=== PATIENT | male | born 1955 | race Caucasian/White ===

== ENCOUNTER 2022-07-25 14:30 | Outpatient (REF) | payer MEDICARE, SELFPAY ==
[2022-07-25 16:03] LABS: Anion Gap 12 (12-20); Blood Urea Nitrogen 17 mg/dL (9-16); Calcium 9.1 mg/dL (8.4-10.2); Carbon Dioxide 30 mmol/L (22-29); Chloride 104 mmol/L (96-108); Estimated Glomerular Filt Rate > 60; Glucose Random 106 mg/dL (60-115); Potassium 4.6 mmol/L (3.3-5.1); Sodium 141 mmol/L (135-145)
[2022-07-25 16:34] LABS: Folate 11.8 ng/mL (> or = 4.0); T4 Thyroxine 6.4 ug/dL (4.5-12.0); Thyroid Stimulating Hormone 0.55 uIU/mL (0.32-4.0); Vitamin B12 505 pg/mL (200-900)
== END 2022-07-25 14:31 | disposition home or self-care (01) ==
LOC: HO.LAB 14:30
PROVIDERS: PCP Internal Medicine; Visit Provider Psychiatry & Neurology Neurology
DX: G31.84 Mild cognitive impairment of uncertain or unknown etiology (principal)
CPT/HCPCS: 36415; 80048; 82607; 82746; 84436; 84443

== ENCOUNTER 2022-08-24 09:26 | Outpatient (REF) | payer MEDICARE, SELFPAY ==
--- NOTE | ~2022-08-24 | CT_ITS ---
EXAMINATION: CT HEAD WITHOUT CONTRAST CLINICAL INFORMATION: 67-year-old with mild cognitive impairment. COMPARISON: None available. TECHNIQUE: Contiguous axial imaging was performed from the skull base to vertex without intravenous administration of contrast. This CT examination was performed using dose optimization techniques as appropriate, variously including the following: *Automated exposure control *Adjustment of mA and/or kV according to patient size (this includes techniques or standardized protocols for targeted exams where dose is matched to indication/reason for exam; i.e. extremities or head) *Use of iterative reconstruction technique DLP: 773.20 mGy-cm FINDINGS: Brain Volume: Within normal limits within the limitations of qualitative assessment. Structural: No malformations. Brain and Meninges: Overall, the brain appears structurally intact. Long-white matter differentiation is well maintained. A few scattered tiny hypodensities are seen in the subcortical white matter of both cerebral hemispheres which are nonspecific and could reflect tiny zones of the chronic ischemic microangiopathy or possibly perivascular spaces. No acute territorial infarct, hemorrhage, extra-axial fluid collection, space-occupying process or mass effect. Ventricles and Subarachnoid Spaces: The ventricular system and subarachnoid spaces are within normal range; there is no hydrocephalus. Orbital Structures: Grossly unremarkable within the limitations of the study. Osseous Structures, Sinuses/Mastoids, Extracranial Soft Tissues: Subcentimeter retention cyst anterior wall right maxillary sinus. Otherwise grossly unremarkable. CT/CT head/brain wo IV con IMPRESSION: 1. No acute intracranial process. No acute territorial infarct, hemorrhage, extra-axial fluid collection, space-occupying process, mass effect or hydrocephalus. 2. A few scattered tiny hypodensities in the subcortical white matter of both cerebral hemispheres are nonspecific and could reflect tiny zones of chronic ischemic microangiopathy or possibly perivascular spaces. 3. No significant disproportionate global or regional brain parenchymal volume loss within the limitations of a qualitative assessment.
== END 2022-08-24 09:27 | disposition home or self-care (01) ==
LOC: HO.CT 09:26
PROVIDERS: PCP Internal Medicine; Visit Provider Psychiatry & Neurology Neurology
DX: G31.84 Mild cognitive impairment of uncertain or unknown etiology (principal)
CPT/HCPCS: 70450

== ENCOUNTER 2024-01-07 07:01 | Outpatient (REF) | payer MEDICARE, SELFPAY ==
--- NOTE | ~2024-01-07 | MR_ITS ---
EXAMINATION: MR BRAIN WITHOUT CONTRAST CLINICAL INFORMATION: Short-term memory problems. Reported prior stroke. COMPARISON: Head CT from 08/24/2022. TECHNIQUE: Multiplanar, multisequence imaging of the brain was performed without contrast. FINDINGS: No diffusion abnormalities are identified to suggest an acute infarct. Mild generalized brain parenchymal volume loss evident. The ventricles are otherwise normal in size. No mass effect or midline shift is seen. Minimal scattered white matter signal changes may be due to chronic microangiopathy. No extra-axial fluid collections are seen. The brainstem and cerebellum are normal. The gradient refocused acquisition is normal. The craniovertebral junction, marrow signal, and midline structures are normal. The major intracranial flow voids at the level of the [place] of [place] are preserved. The dural venous sinus flow voids are maintained. The mastoid air cells are well aerated. Small retention cysts in the maxillary sinuses. Interbody hardware partially visualized at the C3-C4 level. MR/MR head/brain wo con IMPRESSION: No acute intracranial process. Mild generalized brain parenchymal volume loss and minimal chronic white matter microangiopathy. Electronically signed by: Vega Ferrer MD 01/25/2024 03:28 PM EDT
== END 2024-01-07 07:02 | disposition home or self-care (01) ==
LOC: HO.MRI 07:01
PROVIDERS: PCP Internal Medicine; Visit Provider Psychiatry & Neurology Neurology
DX: G31.84 Mild cognitive impairment of uncertain or unknown etiology (principal)
CPT/HCPCS: 70551

== ENCOUNTER 2025-04-21 08:27 | Outpatient (AMB) | payer MEDICARE, SELFPAY ==
--- OUTSIDE RECORDS SUMMARY | 2025-04-21 08:30 | XMS_ITS | Clinical Summary ---
Author Organization [facility] Address [address] [place] [address] Care Team Providers Care Operations Specialists Name Role Phone Vlad Fletcher MD Primary Care Provider [phone] Social History Tobacco Use Types Packs/Day Years Used Date Smoking Tobacco: Never Assessed Sex and Gender Information Value Date Recorded Sex Assigned at Not on file Gender Identity Not on file Sexual Orientation Not on file Job Start Date Occupation Industry Not on file Not on file Not on file Plan of Treatment Health Maintenance Due Date Last Done Comments Hepatitis C Screening 1955 Depression Screening 1969 Preventative Health Evaluation 1975 DTap / Tdap / Td (1 - Tdap) 01/27/1976 Colon Cancer Screening (Colonoscopy) 2002 Shingrix-Zoster Vaccine (1 of 2) 2007 Fall Risk Assessment 2022 Pneumococcal Vaccine (2 of 2 - PPSV23 or PCV20) 2022 01/12/2015 COVID-19 Vaccine (3 - season) 2025 09/12/2020, 08/21/2020 Influenza Vaccine (#1) 2025 , 07/03/2019, 01/25/2017, Additional history exists RSV Adult > 60+ Yrs or (1 - 1-dose 75+ series) 01/27/2032 Hepatitis B Vaccines Aged Out No long er eligible based on patient's age to complete this topic RSV Ped < 20 months Aged Out No longe r eligible based on patient's age to complete this topic Care Teams Operations Specialists Relationship Specialty Start Date End Date Vlad Fletcher MD [address] [place] [id number] PCP - General Internal Medicine 04/28/19
--- OUTSIDE RECORDS SUMMARY | 2025-04-21 08:30 | XMS_ITS | Clinical Summary ---
Author Organization 175 [facility] Address [address] [place] [address] Phone Care Team Providers Care Phototypesetting Equipment Monitor Name Role Phone Paula Kumar MD Primary Care Provider [phone] Allergies Active Allergy Reactions Criticality Noted Date Comments Cat Dander 03/16/2016 CATS Dog Dander 03/16/2016 DOGS Horse Dander 03/16/2016 HORSES Other 03/16/2016 Seasonal Allergies Medications nitroglycerin (NITROSTAT) 0.[address] 1 Tablet under the tongue every 5 minutes as needed for Chest pain. 09/07/19 23 Active lamoTRIgine (LaMICtal) 200 mg tablet Take 1 Tablet by mouth 2 Times Daily. 03/08/20 22 Active aspirin 81 mg EC tablet TAKE 1 TABLET BY MOUTH EVERY DAY 90 tablet 1 07/15/19 25 Active albuterol HFA (PROAIR HFA ; PROVENTIL HFA ; VENTOLIN HFA) 90 mcg/actuation inhaler INHALE 1-2 PUFFS INTO THE LUNGS EVERY 4-6 HOURS NEEDED FOR COUGH OR WHEEZING 18 g 1 08/02/19 25 Active omeprazole (PriLOSEC) [address] capsule Take 1 capsule (20 mg total) by mouth 2 (two) times a day. Do not crush or chew. 360 capsule 10/11/19 25 Active OXcarbazepine (TRILEPTAL) 600 mg tablet Take 1 tablet (600 mg total) by mouth. 10/10/19 25 Active atorvastatin (LIPITOR) 80 mg tablet Take 1 tablet (80 mg total) by mouth 1 (one) time each day. 90 each 1 01/06/20 Active amLODIPine (NORVASC) 5 mg tablet TAKE 1 TABLET BY MOUTH EVERY DAY 90 tablet 1 01/23/20 Active memantine (NAMENDA) 5 mg tablet Take 1 tablet (5 mg total) by mouth 2 (two) times a day. 03/09/20 Active pregabalin (LYRICA) 100 mg capsule TAKE 1 BY MOUTH 3 TIMES A DAY 03/12/20 Active oxyCODONE (ROXICODONE) 5 mg immediate release tabletIndicatio ns:Carpal tunnel syndrome of left wrist Take 1 tablet (5 mg total) by mouth every 6 (six) hours if needed for severe pain. Max Daily Amount: 20 mg 15 tablet 04/09/20 Active LORazepam (ATIVAN) 0.5 mg tablet TAKE ONE TABLET BY MOUTH THREE TIMES A DAY NEEDED 07/07/19 025 Discontinued traMADol ER (ULTRAM-ER) 100 mg 24 hr tabletIndicatio ns:Bilateral carpal tunnel syndrome,Cervic al spondylosis with radiculopathy,C hronic pain syndrome,Lumbar stenosis with neurogenic claudication,Me damaris nerve neuropathy, unspecified laterality Take 1 tablet (100 mg total) by mouth 1 (one) time each day if needed (for severe pain). Do not crush, chew, or split. Max Daily Amount: 100 mg 20 tablet 09/12/19 25 025 Discontinued celecoxib (CeleBREX) 200 mg capsule TAKE 1 CAPSULE BY MOUTH TWICE A DAY 180 capsule 1 10/24/19 025 Discontinued(St op Taking at Discharge) buPROPion SR (WELLBUTRIN SR) 100 mg 12 hr tablet Take 1 tablet (100 mg total) by mouth 1 (one) time each day in the morning. 12/26/19 025 Discontinued Active Problems Problem Noted Date Diagnosed Date Prediabetes 01/05/2025 Multiple thyroid nodules 07/06/2024 Overview (07/06/2024): In accordance with the ACR TI RADS, no imaging follow-up required to any of these nodules. Assessment & Plan (01/05/2025 9:40 AM EDT): He is up-to-date with his follow-up with endocrinology and he will need a repeat thyroid ultrasound 1 year from the last. Thyroid levels are normal. Lumbar stenosis with neurogenic claudication Overview (02/26/2024): Last Assessment & Plan: Mr. Davison is here for his second postop visit since an L2-3, L3-4 decompression on 09/18/2022. He has had complete relief of his low back and leg pain since awakening from surgery and has now had the return of sensation to his toes and feet. He feels great and has to remind himself to gradually return to activity as he feels like he can do anything. On exam, seated SLR is negative, strength 5/5, sensation to light touch intact, gait is steady. Mr Davison is doing quite well from his lumbar decompression and we discussed starting with walking then building up his exercise and activity plan from there. He is welcome to contact us if he has any issues in the future. Assessment & Plan (11/03/2024 3:45 PM EDT): Mr. Davison did well after his lumbar decompression at L2-3 and L3-4 but has had different lower back pain recently. The L5-S1 CORY 2 weeks ago helped for about 1 week and is asking what he should do moving forward. I recommended aquatic therapy and core strengthening. Pharyngeal dysphagia 08/10/2022 Overview (02/26/2024): Resolved with osteophytectomy Last Assessment & Plan: Mr. Davison continues to describe dysphagia with pills and small foods that get caught mid throat. He has to mash his pills and mix with Jell-O every day. He has known prominent anterior osteophytes from C3-C5 which impact his epiglottis as seen on the barium swallow of 04/20/2022. I recommend resection of the osteophytes which should provide some relief. He is agreeable. [place] grade A esophagitis 08/10/2022 Cervical osteophyte 08/10/2022 Overview (02/26/2024): Last Assessment & Plan: Mr. Davison describes neck pain which radiates down the ipsilateral arm to the fingertips if laying on either side at night. It is usually relieved by laying prone with his head and neck in slight flexion above the pillow. This makes for very restless night sleep. He has also noticed that his right hand will become numb within 4 minutes of writing and he often drops a pen. He completed at least 5 weeks of PT with visits 3 times per week without relief. This was in [place] and he will call us back with the location so we can obtain their notes. On exam, cervical rotation is 30 degrees to the left, 45 degrees to the right. Spurling's maneuver is negative though he is quite limited in the degree of sidebending. Strength is 5/5 except for trace giveaway of left tricep compared to right. Gait is steady. We previously discussed his cervical spine MRI from [facility] dated 02/05/2023 which shows a prominent anterior disc osteophyte from C3-C5 measuring 1.4 cm. There is also been progression of the degenerative disc osteophytes and facet hypertrophy causing moderate central stenosis at C3-4 and severe bilateral foraminal narrowing, as well as severe central and foraminal stenosis at C7-T1. We reviewed this in detail and I feel the majority of his symptoms are coming from the disease at C3-4 limiting his mobility, impacting his sleep with radiating arm symptoms and causing the dysphagia. He has had no relief with physical therapy. I recommended a C3-4 ACDF using a one-piece device with anchoring screws therefore, there would be no plate required or creating potential impact on his pharynx. I would also resect the anterior osteophyte at C4-5. We discussed the details, risks, benefits and anticipated postoperative course. All questions were answered and he wishes to proceed. Anxiety 06/15/2022 MCI (mild cognitive impairment) 05/12/2022 Assessment & Plan (01/05/2025 9:40 AM EDT): Referral to his neurologist placed. Orders: Ambulatory referral to Neurology; Future Cardiac microvascular disease 05/12/2022 Abnormal stress test 04/21/2022 Overview (02/26/2024): S/p cardiac cath - Done at [facility] on 12/07/21: no significant CAD suggesting the stress test was a false positive. Coronary artery calcification seen on CAT scan 0 11/09/2021 Assessment & Plan (01/05/2025 9:40 AM EDT): Continue aspirin, atorvastatin, amlodipine. He has been seen by cardiology previously and his cardiac cath has been reviewed. TIA (transient ischemic attack) 09/05/2021 Lung nodules 09/05/2021 Umbilical hernia 05/17/2021 Overview (02/26/2024): CT Scan 04/2021 small fat-containing umbilical hernia Osteoarthritis, hand 07/16/2017 Carpal tunnel syndrome 06/08/2016 Overview (02/26/2024): Bilateral Last Assessment & Plan: Mr. Davison wakes up at night from pain in his hands shooting up the arms every time he turns from [id number]. He has numbness and tingling in both hands and frequently drops things during the day. I believe he has carpal tunnel syndrome which sounded familiar to him. He had an attempted nerve test done years ago, he thought 4 years ago, but aborted it part way through due to discomfort during the test. On exam, both Tinel's test and Phalen's maneuver are positive bilaterally, he is full mobility of the digits. He has agreed to a new bilateral upper extremity NCV and we will pursue treatment thereafter assuming is positive. Assessment & Plan (03/25/2024 11:16 AM EST): Patient is postop day #12 s/p right carpal tunnel release. He states his carpal tunnel symptoms are improved, he has normal sensation back to the digits, numbness tingling gone. He has not yet tried to play his guitar, preop states he could not hold the PICC because the fingers were numb. He has been using the hand, no fevers, wound drainage. While he was here he did mention he has been getting pain radiating from the hand up the posterior arm to the neck at nighttime. Has history of multiple C-spine fusion surgeries. We reviewed his C-spine MRI while he was here in the office from January 2023, he does have C7-T1 stenosis with hypertrophy of the ligament, right foraminal stenosis. We reviewed the images together on the computer. Patient is doing well s/p right carpal tunnel release. I asked him to call the office for a second postop visit in 3 to 4 weeks if he has persistent right arm symptoms. Call sooner if there is any concerns or questions with the wound. We talked about trying OT to improve right hand function/range of motion, he feels he is very active at home, is using the hand and does not need OT. We also talked about PT for his neck pain, upper trapezius spasm, right arm pain, at this time he wants to hold off on any PT. We can address this in the future if he is not seeing improvement. All questions answered. 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 Schatzki's ring 05/02/2016 Impaired fasting glucose 05/02/2016 Hemorrhoids, internal 05/02/2016 Hiatal hernia 05/02/2016 GERD (gastroesophageal reflux disease) 6 Diverticulosis of colon 05/02/2016 Chronic pain syndrome 05/02/2016 Overview (02/26/2024): Failed back surgeries x 2. Dr Eliana Almanza [facility] Cervical spondylosis with radiculopathy 05/02/20 16 Overview (02/26/2024): Last Assessment & Plan: Mr. Davison is here for 6-month follow-up after his C3-4 and C4-5 osteophytectomy with stand-alone 4 web device for an ACDF at C3-4 on 05/08/2023. He has had resolution of his dysphagia and has no trouble breathing. Unfortunately, he continues to have daily neck pain especially when turning at night. His neck pain did not improve after any of his cervical fusions. On exam, he has multiple well-healed right transverse incisions. Cervical rotation is 30 degrees bilaterally, strength is 5/5, sensation to light touch intact, gait is steady, there were no myelopathic findings. Review of the AP/lateral and flexion/extension cervical x-rays from today show solid arthrodesis at his previous levels C4-7 and an intact device at C3-4 with maintenance of disc height, blurring of the midportion to imply arthrodesis and no instability. Since he appears fused at all treated levels, were going to try home cervical traction to relieve some of his neck pain. Assessment & Plan (01/05/2025 9:40 AM EDT): Advised to follow-up with his lift operator for his chronic neck and lower back pain. Orders: Ambulatory referral to Physical Medicine Rehab; Future Assessment & Plan (11/03/2024 3:44 PM EDT): I reviewed the new cervical spine MRI with Mr. Davison and there is no new finding. It is stable compared to the one from 6 months ago and I do not see an explanation for what seems to be a bilateral C6 radiculopathy. The mid cervical levels were fused quite sometime ago and he has had a right carpal tunnel release. It is also difficult to explain why this would have worsened after the T1-2 epidural injection. He asked if the neuropathy could be treated but we have not labeled this as a neuropathy. I recommended repeating his bilateral upper extremity EMG/NCV and he is agreeable with that plan. In the interim, I do not think he should have any further injections this year. We will try to create a new plan once the EMG results are available. Assessment & Plan (09/03/2024 4:19 PM EDT): Mr. Davison has had increased numbness in the fingers of both hands for the past week or two. He also has ongoing neck pain and radiation to the right greater than left shoulder, triceps, and to his hand. He is s/p C3-7 anterior cervical fusion and more recently right carpal tunnel release. He reported being better postoperatively but now feels he is getting worse again. I reviewed his cervical MRI from [facility] dated 05/01/24 that showed degenerative changes at C7-T1 below his C3-7 fusion. At this point we all agree that more neck surgery should be avoided if possible so that he doesn't lose another motion segment in his neck. He agreed to try PT with cervical traction to see if that will help. We also talked about accupuncture as a reasonable conservative modality. He will f/u on an as needed basis. Asthma 05/02/2016 Arthritis of both shoulder regions 05/02/2016 Overview (02/26/2024): Orthopedics (11/20/16): Received steroid injection on his left shoulder Actinic keratoses 05/02/2016 Thoracic disc herniation 03/16/2016 Overview (02/26/2024): Last Assessment & Plan: The patient also describes significant upper thoracic pain between the shoulder blades that bothers him the most at night, he is unable to sleep in his normal side-lying position and has to be face down with his neck flexed and forehead and the pillow. This gradually resolves after he is awake standing and walking. He discussed this with Dr. Morley in the past who advised him against considering any thoracic surgery. I agreed since he does not have any symptoms of thoracic myelopathy or lower extremity weakness. He had an outside thoracic MRI which he believes showed multilevel arthritis. On exam, he is tender approximately T4-T6. I would be happy to refer him to pain management to consider facet injections though he will have to obtain the study to bring with him. He is asked to be referred to Dr. Saleh. Hyperlipidemia 03/16/2016 Assessment & Plan (01/05/2025 9:40 AM EDT): Cholesterol levels are suboptimal. I will increase his atorvastatin dose from 40 mg to 80 mg daily. Recheck cholesterol levels in 1 month's time. Orders: Lipid panel with reflex to direct LDL; Future Hepatic function panel; Future Bipolar disorder (CMS/HCC V24, CMS/[facility] V28) 02/19 Encounters Date Type Department Care Team Description 04/09/2025 7:30 AM EST - 04/09/2025 9:00 AM EST Surgery [facility] Main OR [address] [place] [phone] Stephie Vidales MD RELEASE LEFT CARPAL TUNNEL [[id number] (CPT )] 04/09/2025 7:28 AM EST Anesthesia Event [facility] OR [address] [place] [address] Michael Frazier MD 04/09/2025 5:52 AM EST - 04/09/2025 9:40 AM EST Hospital Encounter [facility] OR [address] [place] [address] Stephie Vidales MD Carpal tunnel syndrome of left wrist (Primary Dx) Discharge Disposition: Home or Self Care 03/27/2025 Telephone Neurosurgery [facility] [address] [facility] [address] [place] [phone] Stephie Vidales MD 03/09/2025 Telephone Internal Medicine - [facility] [address] [place] [phone] Paula Kumar MD 02/12/2025 10:20 AM EDT Office Visit [facility] [address] [place] [address] Ramiro Pace MD RBBB 01/21/[address] [place] [address] Paula Kumar MD 01/21/2025 Telephone Internal Medicine - [facility] [address] [place] [address] Paula Kumar MD from Last 3 Months Immunizations Immunization Administration Dates Next Due Influenza Quadravalent, MDCK , 0.5ml, preservative free (Flucelvax) 6mo and older 2021,07/03/2019 Influenza Quadravalent, MDCK , 0.5ml, with preservative (Flucelvax) 6mo and older 01/25/2017 Influenza trivalent, 0.5mL ( Fluzone High-dose) 65yo and older 03/12/2024 Influenza trivalent, with pr eservative (Fluzone; Afluria) 6mo and older 02/07/2018,03/16/2016,03/04/2015 Influenza, Unspecified 02/24/2023 Pfizer SARS-CoV-2 COVID-19, mRNA, LNP-S, preservative free 02/28/2023,09/12/2020,08/21/2020 Pneumococcal conjugate 13 va lent (Prevnar 13, PCV13) 2mo and older 01/12/2015 Pneumococcal conjugate 20 va lent (Prevnar 20, PCV 20) 2mo and older 01/05/2022 Pneumococcal polysaccharide 23 valent (Pneumovax 23) 2yo and older 01/12/2015,03/04/2009 Td Tetanus diptheria (Tdvax) 7yo and older 07/03 Tdap Tetanus diptheria acell ular pertussis (Boostrix; Adacel) 7yo and older 05/26/2024,03/04/2009 Zoster Live 04/26/2017 Zoster recombinant (Shingrix ) 19yo and older 01/05/2022 Surgical History Surgery Date Site/Laterality Comments BACK SURGERY 05/21/1989 PROCEDURE: HISTORICAL BACK SURGERY; COMMENT: cervical spine graft and anterior plate fixation BACK SURGERY 05/21/1999 PROCEDURE: HISTORICAL BACK SURGERY; COMMENT: L4 -L5 discectomy OTHER SURGICAL HISTORY 05/12/2015 PROCEDURE: NE GASTRIC MOTILITY MANOMETRIC STUDIES; COMMENT: normal COLONOSCOPY 05/12/2015 PROCEDURE: HISTORICAL COLONOSCOPY; COMMENT: internal hemorrhoids,diverticulosis) COLONOSCOPY 09/02/2007 PROCEDURE: HISTORICAL COLONOSCOPY SHOULDER SURGERY 10/20/2015 Right PROCEDURE: HISTORICAL SHOULDER SURGERY; COMMENT: rotator cuff UPPER GASTROINTESTINAL ENDOSCOPY 05/08/2011 PROCEDURE: UPPER GI ENDOSCOPY/EXAM NECK SURGERY 07/2020 Bilateral PROCEDURE: HISTORICAL NECK SURGERY; COMMENT: cervical fusion C4-5, (previous ACDF from C5-C7) NECK SURGERY 12/29/2020 PROCEDURE: HISTORICAL NECK SURGERY; COMMENT: C5-[address] Morley BACK SURGERY 09/18/2022 PROCEDURE: HISTORICAL BACK SURGERY; COMMENT: L2-3, L3-4 decompression, Dr. Vidales NECK SURGERY 05/08/2023 PROCEDURE: HISTORICAL NECK SURGERY; COMMENT: C3-4 Osteophytectomy CARPAL TUNNEL RELEASE 03/13/[address] Vidales Medical History Medical History Date Comments Hyperlipidemia DX:Hyperlipidemi a Herniated thoracic disc with out myelopathy DX:Herniated thoracic disc w ithout myelopathy; COMMENT: t9-t10 Diverticulosis of colon 05/02/2016 DX:Diver ticulosis of colon GERD (gastroesophageal reflux disease) DX:GERD (gastroesophageal reflux disease) Asthma 05/02/2016 DX:Asthma Actinic keratoses 05/02/2016 DX:Actinic ker atoses Degenerative arthritis of ce rvical spine 05/02/2016 DX:Degenerative arthritis of cervical spine Impaired fasting glucose 05/02/2016 DX:Impa ired fasting glucose Arthritis of both shoulder regions 05/02/2016 DX:Arthritis of both shoulder regions Bipolar disorder (CMS/HCC V2 4, CMS/HCC V28) 03/16/2016 DX:Bipolar disorder (HCC) Chronic pain syndrome 05/02/2016 DX:Chronic pain syndrome; COMMENT: Failed back surgeries x 2. Dr Eliana Almanza [facility] Hiatal hernia 05/02/2016 DX:Hiatal hernia Schatzki's ring 05/02/2016 DX:Schatzki's ri ng Thoracic disc herniation 03/16/2016 DX:Thor acic disc herniation Hemorrhoids, internal 05/02/2016 DX:Hemorrh oids, internal TIA (transient ischemic attack) 09/05/2021 DX:TIA (transient ischemic attack) Lung nodules 09/05/2021 DX:Lung nodules Coronary artery calcificatio n seen on CAT scan 11/09/2021 DX:Coronary artery calcifica tion seen on CAT scan Cardiac microvascular disease 05/12/2022 DX :Cardiac microvascular disease MCI (mild cognitive impairment) 05/12/2022 DX:MCI (mild cognitive impairment) Osteoarthritis DX:Osteoarthriti s Multiple thyroid nodules 07/06/2024 Prediabetes 01/05/2025 Hypertension Anxiety Depression Family History Medical History Relation Name Comments Lung cancer Mother Found out after she had passed; he is unsure she smoked or not. Other: unknown Other adopted Relation Name Status Comments Mother Other Social History Tobacco Use Types Packs/Day Years Used Date Smoking Tobacco: Never Smokeless Tobacco: Never Tobacco Cessation:Counseling Given: Not Answered Alcohol Use Standard Drinks/Week Comments No 0 (1 standard drink = 0.6 oz pur e alcohol) Housing Instability Answer Date Recorde d Are you worried that in the next 2 months you may not have stable housing? No 07/04/2024 Food Access & Nutrition Answer Date Rec orded Do you have access to a vari ety of food including fruits and vegetables? Yes 07/04/2024 Access to Healthcare Answer Date Record ed Within the last 3 months, ho w many times did you visit the emergency department for your medical care? 0 07/04/2024 Health Literacy Answer Date Recorded How often do you need to hav e someone help you when you read instructions, pamphlets, or other written material from your doctor or pharmacy? Never 07/04/2024 Caregiver: How often do you need to have someone help you when you read instructions, pamphlets, or other written material from your doctor or pharmacy? Not on file 07/04/2024 Financial Risk Answer Date Recorded How hard is it for you to pa y for the very basics like food, housing, medical care, and air conditioning / heating? Not very hard 07/04/2024 Transportation Answer Date Recorded Has the lack of transportati on kept you from meetings, work, or from getting things needed for daily living? No Has the lack of transportati on kept you from medical appointments or from getting medications? No 07/04/2024 Social Isolation Answer Date Recorded How often do you feel lonely or isolated from th ose around you? Never 07/04/2024 Food Risk Answer Date Recorded Within the past 12 months we worried whether our food would run out before we got money to buy more. Never true 07/04/2024 Within the past 12 months th e food we bought just didn't last and we didn't have money to get more. Never true 07/04/2024 Dependent Care Answer Date Recorded Do you need help finding or paying for care for your loved ones. For example, children's program coordinator or elderly care for an older adult? No 07/04/2024 Education Answer Date Recorded Do you think completing more education or training, like finishing a GED, going to college, or learning a trade, would be helpful for you? No 07/04/2024 Employment and Income Answer Date Recor ded During the last four weeks, have you been actively looking for work? No 07/04/2024 Interpersonal Safety Answer Date Record ed Physical Abuse Unrecognized value 04/09/2025 Verbal Abuse Unrecognized value 04/09/2025 Sex and Gender Information Value Date Recorded Sex Assigned at Male 06/30/2024 7:57 AM EST Legal Sex Male 2:50 PM EST Gender Identity Male 06/30/2024 7:57 AM EST Sexual Orientation Choose not to disclose 2024 7:57 AM EST Obstetrics History Last Filed Vital Signs Vital Sign Reading Time Taken Comments Blood Pressure 114/74 04/09/2025 9:03 AM EST Pulse 54 04/09/2025 9:03 AM EST Temperature 36.2 C (97.2 F) 04/09/2025 8:44 AM EST Respiratory Rate 16 04/09/2025 9:03 AM EST Oxygen Saturation 99% 04/09/2025 9:03 AM EST Inhaled Oxygen Concentration - - Weight 62.6 kg (138 lb) 03/31/2025 10:00 AM EST Height 162.6 cm (5' 4 ) 03/31/2025 10:00 AM EST Body Mass Index 23.69 03/31/2025 10:00 AM EST Plan of Treatment Upcoming Encounters Date Type Department Care Team (Late st Contact Info) Description 04/21/2025 3:45 PM EST Office Visit Neurosurgery [facility] [address] [facility] [address] [place] [phone] Ned Camacho PA 175 [facility] [address] [place] [address] 05/07/2025 8:45 AM EST Office Visit Internal Medicine - [facility] [address] [place] [address] Nancy Jarrett NP [address] [place] [address] 05/19/2025 12:00 PM EST Appointment [facility] Endoscopy [address] [place] [phone] Isaac Solorio MD [address] [facility] [address] [place] [address] 08/06/2025 9:30 AM EDT Office Visit Endocrinology - [place] [place] [address] Stephie Kelly PA [address] [place] [address] Health Maintenance Due Date Last Done Comments RSV Immunization Adult Patients (1 - Risk 50-74 years 1-dose series) 2007 Zoster Vaccines (2 of 2) 03/02/2022 01/05/2022, 12/11/2016 Medicare Annual Wellness Visit 09/16/2024 09/17/2023 COVID-19 Vaccine ( season) 2025 03/12/2024, 02/28/2023, 02/15/2022, Additional history exists Influenza Vaccine (#1) 2025 , 02/24/2023, 2021, Additional history exists Colorectal Cancer Screening: Colonoscopy 05/12/2025 05/12/2015 Social Influencers of Health Screening 07/04/2025 07/04/2024 Falls Risk Assessment 07/07/2025 07/07/2024 Hypertension/CHF/CAD Annual BMP Blood Test 01/15/2026 01/15/2025, 07/07/2024, 07/07/2024, Additional history exists Cholesterol Screening (Lipid Panel) 02/19/2030 02/19/2025, 12/09/2024, 03/20/2023 DTaP,Tdap,and Td Vaccines (4 - Td or Tdap) 05/26/2034 05/26/2024, 07/03/2019, 03/04/2009 Hepatitis C Screening Completed 12/29/2021 Pneumococcal Vaccine: 50+ Years Completed 01/05/2022, 01/12/2015, 01/12/2015, Additional history exists Depression Screening Completed 07/04/2024 HIB Vaccines Aged Out No longer eligi ble based on patient's age to complete this topic HPV Vaccines Aged Out No longer eligi ble based on patient's age to complete this topic Hepatitis A Vaccines Aged Out No long er eligible based on patient's age to complete this topic Hepatitis B Vaccines Aged Out No long er eligible based on patient's age to complete this topic IPV Vaccines Aged Out No longer eligi ble based on patient's age to complete this topic MMR Vaccines Aged Out No longer eligi ble based on patient's age to complete this topic Meningococcal ACWY Vaccine Aged Out N o longer eligible based on patient's age to complete this topic Meningococcal B Vaccine Aged Out No l onger eligible based on patient's age to complete this topic RSV Immunization Patients Under 20 months Aged Out No longer eligible based on patient's age to complete this topic Varicella Vaccines Aged Out No longer eligible based on patient's age to complete this topic Goals Goal Patient Goal Type Associated Problems Recent Progress Patient-Stated? Author Autogenera teagan Goal Care Plan Autogenerated Problem No Monica Cox MA Autogenera teagan Goal Care Plan Autogenerated Problem No Kiara Floyd Procedures Procedure Name Priority Date/Time Associated Diagnosis Comments NE NEUROPLASTY/TRANSPOS ITION MEDIAN NERVE AT CARPAL TUNNEL 04/09/2025 7:28 AM EST Carpal tunnel syndrome Case Notes EXTREMITY BOARD Special Needs Please put case on at 7:30 and bump other case to follow LIPID PANEL WITH REFLEX TO DIRECT LDL Routine 02/19/2025 11:18 AM EDT Hyperlipidemia, unspecified hyperlipidemia type HEPATIC FUNCTION PANEL Routine 02/19/2025 11:18 AM EDT Hyperlipidemia, unspecified hyperlipidemia type ECG 12-LEAD Routine 02/12/2025 11:10 AM EDT RBBB COMPREHENSIVE METABOLIC PANEL Routine 01/15/2025 9:22 AM EDT Polypharmacy HEPATITIS C SCREENING Routine 12/29/2021 COLONOSCOPY Routine 05/12/2015 from Last 3 Months or Most Recently Relevant to Health Maintenance Results * Lipid panel with reflex to direct LDL (02/19/2025 11:18 AM EDT) [facility] Cholesterol 175 0 - 200 mg/dL LAB CHEMISTRY METHOD 02/19/2025 4:18 PM EDT [facility] Triglycerides 106 0 - 150 mg/dL LAB CHEMISTRY METHOD 02/19/2025 4:18 PM EDT [facility] HDL 65 >=40 mg/dL LAB CHEMISTRY METHOD 02/19/2025 4:18 PM EDT [facility] LDL Calculated 89 0 - 100 mg/dL LAB CHEMISTRY METHOD 02/19/2025 4:18 PM EDT [facility] Comment:Estimated LDL Calcul ated using equation: Total cholesterol - HDL cholesterol - (Triglycerides/5) VLDL Cholesterol Bruce 21.2 mg/dL LAB CHEMISTRY METHOD 02/19/2025 4:18 PM EDT [facility] Non HDL Chol. (LDL+VLDL) 110 <145 mg/dL LAB CHEMISTRY METHOD 02/19/2025 4:18 PM EDT [facility] Chol/HDL Ratio 2.7 0.0 - 4.4 LAB CHEMISTRY METHOD 02/19/2025 4:18 PM EDT [facility] Blood Venous blood specimen / Unknown Venipuncture / Unknown 02/19/2025 11:18 AM EDT 02/19/2025 11:18 AM EDT Vlad Fletcher MD LAB BLOOD ORDERABLES Yana l Result [facility] [address] [place] [address], * Hepatic function panel (02/19/2025 11:18 AM EDT) Total Protein 7.1 6.0 - 8.0 g/dL LAB CHEMISTRY METHOD 02/19/2025 4:18 PM EDT [facility] Albumin 4.4 3.2 - 5.0 g/dL LAB CHEMISTRY METHOD 02/19/2025 4:18 PM EDT [facility] Total Bilirubin 0.4 0.0 - 1.4 mg/dL LAB CHEMISTRY METHOD 02/19/2025 4:18 PM EDT [facility] Bilirubin, Direct 0.1 0.0 - 0.3 mg/dL LAB CHEMISTRY METHOD 02/19/2025 4:18 PM EDT [facility] Bilirubin, Indirect 0.3 0.0 - 1.1 mg/dL LAB CHEMISTRY METHOD 02/19/2025 4:18 PM EDT [facility] ALT (SGPT) 51 10 - 60 unit/L LAB CHEMISTRY METHOD 02/19/2025 4:18 PM EDT [facility] AST (SGOT) 30 10 - 42 unit/L LAB CHEMISTRY METHOD 02/19/2025 4:18 PM EDT [facility] Alkaline Phosphatase 86 42 - 121 unit/L LAB CHEMISTRY METHOD 02/19/2025 4:18 PM EDT [facility] Blood Venous blood specimen / Unknown Venipuncture / Unknown 02/19/2025 11:18 AM EDT 02/19/2025 11:18 AM EDT us Vlad Fletcher MD LAB BLOOD ORDERABLES Yana l Result [facility] [address] [place] [address], * ECG 12 lead (02/12/2025 11:10 AM EDT) Ventricular Rate ECG 61 BPM GEMUSE Atrial Rate 61 BPM GEMUSE P-R Interval 162 ms GEMUSE QRS Duration 128 ms GEMUSE Q-T Interval 414 ms GEMUSE QTc 416 ms GEMUSE P Wave [place] 37 degrees GEMUSE R [place] -86 degrees GEMUSE T [place] 36 degrees GEMUSE ECG Interpretation Sinus rhythm with Premature atrial complexes Right bundle branch block Left anterior fascicular block Bifascicular block Abnormal ECG When compared with ECG of 13-MAR-2024 06:04, No significant change was found Confirmed by RAMIRO PACE ([id number]) on 02/19/2025 1:57:00 PM GEMUSE 02/12/2025 11:1 0 AM EDT 02/19/2025 1:57 PM EDT us Ramiro Pace MD ECG ORDERABLES Final Result GEMUSE * (ABNORMAL) Comprehensive metabolic panel (01/15/2025 9:22 AM EDT) Sodium 138 133 - 145 mmol/L LAB CHEMISTRY METHOD 01/15/2025 12:33 PM [facility] Potassium 4.6 3.5 - 5.5 mmol/L LAB CHEMISTRY METHOD 01/15/2025 12:33 PM [facility] Chloride 106 96 - 110 mmol/L LAB CHEMISTRY METHOD 01/15/2025 12:33 PM [facility] CO2 29 21 - 32 mmol/L LAB CHEMISTRY METHOD 01/15/2025 12:33 PM [facility] Anion Gap 3 3 - 11 LAB CHEMISTRY METHOD 01/15/2025 12:33 PM [facility] Glucose 105(H) 70 - 100 mg/dL LAB CHEMISTRY METHOD 01/15/2025 12:33 PM [facility] BUN 19 5 - 25 mg/dL LAB CHEMISTRY METHOD 01/15/2025 12:33 PM [facility] Creatinine 0.71 0.70 - 1.30 mg/dL LAB CHEMISTRY METHOD 01/15/2025 12:33 PM [facility] eGFR 101 >=60 mL/min/1. 73m2 LAB CHEMISTRY METHOD 01/15/2025 12:33 PM [facility] Comment:Calculation based on the Chronic Kidney Disease Epidemiology Collaboration (CKD-EPI) equation refit without adjustment for race. BUN/Creatinine Ratio 26.8 LAB CHEMISTRY METHOD 01/15/2025 12:33 PM [facility] Calcium 9.0 8.5 - 10.5 mg/dL LAB CHEMISTRY METHOD 01/15/2025 12:33 PM [facility] AST (SGOT) 34 10 - 42 unit/L LAB CHEMISTRY METHOD 01/15/2025 12:33 PM [facility] ALT (SGPT) 49 10 - 60 unit/L LAB CHEMISTRY METHOD 01/15/2025 12:33 PM [facility] Alkaline Phosphatase 77 42 - 121 unit/L LAB CHEMISTRY METHOD 01/15/2025 12:33 PM T [facility] Total Protein 6.6 6.0 - 8.0 g/dL LAB CHEMISTRY METHOD 01/15/2025 12:33 PM [facility] Albumin 4.1 3.2 - 5.0 g/dL LAB CHEMISTRY METHOD 01/15/2025 12:33 PM [facility] Total Bilirubin 0.4 0.0 - 1.4 mg/dL LAB CHEMISTRY METHOD 01/15/2025 12:33 PM [facility] Blood Venous blood specimen / Unknown Venipuncture / Unknown 01/15/2025 9:22 AM EDT 01/15/2025 9:22 AM EDT Imtiaz Mcdaniel MD LAB BLOOD ORDERABLES Final R esult [facility] [address] [place] [address], * Hepatitis C Screening (12/29/2021) Hepatitis C Screening Abstracted Historical Provider HEALTH MAINTENANCE Final Result * Colonoscopy (05/12/2015) Pathologist [facility] Colonoscopy Abstracted, No interpretation Anatomical Region Laterality Modality Other Historical Kiera MAJANO HEALTH MAINTENANCE Final Result from Last 3 Months or Most Recently Relevant to Health Maintenance Additional Health Concerns Active Problems Noted Date Diagnosed Date Autogenerated Problem 04/10/2025 Autogenerated Problem 03/31/2025 Insurance [employer] MED[employer]ARE [employer]AGE Advance Directives * Full Code - Default (Latest Code Status on File) Date Activated Date Inactivated Comments 04/09/2025 6:39 AM 04/09/2025 11:55 AM This is o rder is used when code status has not been discussed with the patient, or code status is otherwise unknown/unconfirmed To update the patient's code status, place a code status order. Do not modify or discontinue any currently active code status orders. Care Teams Phototypesetting Equipment Monitor Relationship Specialty Start Date End Date Paula Kumar MD [address] [place] [address] [place] [id number] PCP - General Internal Medicine 01/05/25
--- OUTSIDE RECORDS SUMMARY | 2025-04-21 08:30 | XMS_ITS ---
Author Name [facility] Organization Unknown Care Team Organization Name Specialty Phone Email Start Date End Da te [facility] Vlad Fletcher Primary Care 10/27/2022 01/07/2024
[2025-04-21 08:38] VITALS: BMI 24.0
--- NOTE | 2025-04-21 08:38 | A.PHYSOV ---
Vital Signs 04/21/25 08:38 Height 5 ft 4 in Weight 140 lb BMI 24.0 Intake Visit Reasons: EMG followup Intake Note: Patient is a 70 year old male in office today for his emg results. Product Merchandiser Required: No Allergies No Known Allergies Allergy (Verified 04/21/25 08:39) HPI Comments Details: History of Present Illness The patient is a 70 year old individual presenting for a follow-up visit for chronic neck pain, cervical radiculitis, and carpal tunnel syndrome. The patient has a history of cervical fusions. In regard to the neck, the patient underwent a T1-T2 epidural injection on June 18, 2024, which provided very good relief of neck pain. However, the patient continues to experience persistent numbness in the hands, which was exacerbated by the injection. The patient's symptomatology was consistent with carpal tunnel syndrome, and the patient has a history of a prior carpal tunnel release. The patient was recently reevaluated by a neurosurgical team for persistent hand numbness and underwent an updated electrodiagnostic evaluation. The EMG reportedly showed severe damage in both hands, with active compression on the left and chronic non-compressive damage on the right. Subsequently, the patient underwent a left carpal tunnel release on April 09, [address] Vidales. The patient has a history of good benefit from carpal tunnel injections performed before the surgery. The patient also has a history of low back pain and previously received a lumbar epidural injection, which provided excellent, but short-lived benefit. The pain has since returned and is described as spreading. The patient is currently taking pregabalin, with the nighttime dose having been increased to 300 mg. The patient was previously provided with a short supply of oxycodone for severe pain. The patient has a history of using buprenorphine patches, which worked well. Pain Description - Location: The patient reports pain and numbness in both hands and low back pain. - Quality: The hand symptoms are described as numbness, and the patient reports electric sensations in the left hand post-surgery. - Severity/Timing: The low back pain is severe enough to wake the patient up screaming three times one night. - Modifying Factors: Low back pain is temporarily relieved by getting up and walking around. - Associated Symptoms: The hand symptoms are associated with an inability to maneuver a fork or pickle solution maker small objects, a sensation of skin pulling away from underlying tissue, and a feeling of coldness requiring gloves. Results - Electrodiagnostic Evaluation: A recent evaluation was performed. - Electrodiagnostic Evaluation: Results reportedly showed severe damage in both hands, with compression on the left and chronic, non-compressive damage on the right. - Electrodiagnostic Evaluation: History of an EMG test from 2017. [facility] Medical History (Updated 04/21/25 @ 15:55 by Ariel Saleh DO) Post laminectomy syndrome Cervical radiculitis Carpal tunnel syndrome on both sides Chronic pain syndrome Surgical History (Updated 04/21/25 @ 09:10 by Kimber Chavez MA) History of carpal tunnel surgery History of neck surgery History of back surgery Social History Household Members: Spouse Alcohol intake: current Alcohol intake frequency: does not drink Patient Tobacco Use Status: Never used Tobacco Use of substances other than those prescribed or required for medical reasons: No Current occupational status: retired Review of Systems Narrative Review of Systems - Neurological: Reports persistent numbness and severe damage in both hands, which is constant. - Neurological: Reports electrical sensations in the left hand. - Musculoskeletal: Reports chronic low back pain that wakes the patient from sleep. - Constitutional: Reports inability to get a full night's sleep due to pain. - Skin: Reports the sensation of skin pulling away from the underlying tissue in the hands when grabbing objects. Physical Exam Exam Exam: Physical Exam Patient appears to be in no acute distress, appropriately conversant. He was able to ambulate without antalgia. Lumbar extension was restricted. Cervical range of motion was restricted in all planes. Spurling maneuver was negative. Lhermitte's sign was negative. Examination of both hands reveals thenar eminence wasting. Carpal compression test was positive on both sides. Bandage applied to the left wrist after left carpal tunnel release surgery. Vital Signs: BMI result Body Mass Index 24.0 Assessment & Plan Assessment & Plan (1) Chronic pain syndrome: Code(s): G89.4 - Chronic pain syndrome Category: Medical (2) Carpal tunnel syndrome on both sides: Code(s): G56.03 - Carpal tunnel syndrome, bilateral upper limbs Category: Medical (3) Cervical radiculitis: Code(s): M54.12 - Radiculopathy, cervical region Category: Medical (4) Post laminectomy syndrome: Code(s): M96.1 - Postlaminectomy syndrome, not elsewhere classified Category: Medical Plan Pain Management - Analgesia: The patient is currently taking pregabalin 300 mg at night, but reports it is not helping with sleep or pain. - Activities of Daily Living: The patient's sleep is significantly disrupted, waking up screaming from pain. - Activities of Daily Living: The patient reports an inability to maneuver a fork or pickle solution maker small objects due to hand symptoms. - Adverse Effects: The patient reports that oxycodone causes constipation and is afraid to get another injection because a previous one made symptoms worse. - Affect: The patient expresses confusion regarding the treatment plan and which physician to see for pain. - Aberrant Drug Related Behaviors: The an has a few oxycodone tablets left from a previous prescription but dislikes taking them. Plan Patient was informed and verbally consented to the use of an ambient scribe for clinic note documentation during this visit. 1. Bilateral Carpal Tunnel Syndrome, Status Post Left Carpal Tunnel Release The patient is post-left carpal tunnel release with persistent symptoms in both hands, consistent with verbally reported EMG findings of severe damage. An injection for the right hand was discussed as a temporary measure, but the patient is hesitant due to a prior experience where an injection worsened symptoms. The pain will be addressed as part of the overall pain management plan. 2. Chronic Pain Syndrome The patient has significant neuropathic pain in the hands and chronic low back pain, which is poorly controlled on the current regimen of pregabalin 300 mg at night and severely impacts sleep. A trial of tramadol 50 mg immediate-release will be initiated. A prescription for 56 tablets will be sent, with instructions to take one to two tablets up to four times daily as needed for pain. The potential benefit of combining tramadol with pregabalin for nerve pain was discussed. Buprenorphine patches were discussed as a future option, given their past efficacy for the patient's pain. The patient will follow up after the holidays to assess the response to treatment. Discussion Notes I discussed with the patient that the nerve damage in the hands is chronic and that surgery aims to prevent further damage rather than fully reverse existing deficits. I offered an injection for the right hand to provide temporary relief, but the patient expressed concern as a previous injection reportedly worsened the symptoms. We agreed to proceed with medical management. I explained that I cannot fix the underlying issue but can help manage the pain. Given that pregabalin is providing insufficient relief and the patient has adverse effects with oxycodone, I proposed a trial of immediate-release tramadol. I explained it is a milder narcotic than oxycodone and may help nerve pain, especially when combined with pregabalin. I will prescribe a 7-day supply of 56 tablets of tramadol 50 mg with instructions to take 2 tablets up to 4 times a day as needed. We also discussed buprenorphine patches as a future option, which the patient confirmed worked well in the past. I addressed concerns about monitoring, clarifying that urine testing would be infrequent, perhaps once a year. The patient was not ready to restart patches but will consider it. The patient was instructed to follow up after the holidays to review the response to tramadol. Patient Instructions - A prescription for tramadol 50 mg has been sent to your pharmacy. - You may take one or two tablets by mouth up to four times a day as needed for pain. - Please be aware that tramadol is a narcotic medication, but it is milder than oxycodone. - Continue taking your pregabalin as prescribed; it may work together with the tramadol to help your nerve pain. - Please call to schedule a follow-up appointment after the holidays to check in and see how the new medication is working. - If this medication does not help, we can talk again about using the pain patch (buprenorphine), which worked very well for your pain in the past. Medications: New tramadol Partial fill upon request 100 mg (2 x 50 mg) PO Q6H PRN 56 tabs 0RF pain 7 days G89.4 - Chronic pain syndrome Coding Level of Care Code Est Pt Level 4 (03751) Complex visit Add On G2211 Diagnoses Chronic pain syndrome G89.4 Carpal tunnel syndrome on both sides G56.03 Cervical radiculitis M54.12 Post laminectomy syndrome M96.1
== END 2025-04-21 09:17 | disposition home or self-care (01) ==
LOC: HO.HPHYS 08:27
PROVIDERS: PCP Internal Medicine; Visit Provider Physical Medicine & Rehabilitation
DX: G89.4 Chronic pain syndrome (principal); G56.03 Carpal tunnel syndrome, bilateral upper limbs; M54.12 Radiculopathy, cervical region; M96.1 Postlaminectomy syndrome, not elsewhere classified
CPT/HCPCS: 99214; G2211

== ENCOUNTER → 2025-04-21 08:27 | Outpatient (BNVA) | payer MEDICARE, SELFPAY | PROVIDERS: PCP Internal Medicine; Visit Provider Physical Medicine & Rehabilitation | DX: G89.4 Chronic pain syndrome (principal); G56.03 Carpal tunnel syndrome, bilateral upper limbs; M96.1 Postlaminectomy syndrome, not elsewhere classified; Z79.899 Other long term (current) drug therapy | CPT/HCPCS: 99212 ==